=== PATIENT | male | born 1945 | race Caucasian/White ===

== ENCOUNTER 2022-04-03 14:10 | Emergency (ER) | payer MEDICARE, SELFPAY ==
[2022-04-03 14:18] VITALS: BP 150/77; PULSE 92; RESP 16; TEMP 36.6; O2SAT 100
--- NOTE | 2022-04-03 14:20 | ED.URI ---
HPI - URI/Sore Throat General Chief Complaint: Upper Respiratory Infection Stated Complaint: sinus infection Time Seen by Provider: 04/03/22 14:21 Source: patient and RN notes reviewed History of Present Illness HPI Narrative: patient is a 77-year-old male who presents to urgent care with complaints of sinus congestion, nasal pressure and fever. Patient states he has had congestion for approximately 1 week and the fever of 102 F started yesterday. Patient has been taking Kim. States that his daughter and spouse have sinus infections and were placed on antibiotics . No other complaints. No acute distress noted. Patient Aware of the plan of care. Some parts of this dictation were generated by voice recognition software and may contain typographical and/or grammatical inaccuracies. Related Data Home Medications Medication Instructions Recorded Confirmed hydrochlorothiazide 12.5 mg tablet 12.5 mg PO DAILY 04/03/22 04/03/22 liraglutide 0.6 mg/0.1 mL (18 mg/3 1.8 mg subcut DAILY 04/03/22 04/03/22 mL) subcutaneous pen injector (Osito 2-Rohit) metoprolol tartrate 50 mg tablet 50 mg PO BID 04/03/22 04/03/22 pantoprazole 40 mg tablet,delayed 40 mg PO HS 04/03/22 04/03/22 release pioglitazone 30 mg tablet 30 mg PO DAILY 04/03/22 04/03/22 simvastatin 40 mg tablet 40 mg PO DAILY 04/03/22 04/03/22 Allergies Allergy/AdvReac Type Severity Reaction Status Date / Time No Known Allergies Allergy Verified 04/03/22 14:28 Review of Systems Review of Systems: CONSTITUTIONAL: reports of fever EYES: Denies visual changes, redness, or discharge. ENT: reports nasal congestion, postnasal drainage, rhinorrhea CARDIOVASCULAR: Denies chest pain, palpitations, or edema. RESPIRATORY: Denies cough or dyspnea. GASTROINTESTINAL: Denies abdominal pain, nausea, vomiting, or diarrhea. GENITOURINARY: Denies dysuria or hematuria. SKIN: Denies rash or itching. MUSCULOSKELETAL: Denies back pain, joint pain . Reports body aches NEUROLOGIC: Denies headache, numbness, or weakness. All other systems reviewed are negative, except as documented in HPI. PMFSH Comments At the time of my signature, I reviewed and agree with the nursing past medical, surgical, social, and family history. There is no relevant family history pertinent to the patient complaint. Exam Narrative: GENERAL: This is a well-nourished, well-developed patient, in no apparent distress. HEAD: normocephalic, atraumatic. EYES: PERRL. Sclera clear/white. Vision is grossly intact. EARS: External ears normal, auditory canals clear and without drainage, TMs normal without perforation. Hearing grossly intact. NOSE: External nose normal with no obvious nasal discharge, moderate bilateral erythema nares with clear to yellow rhinorrhea THROAT: Mucous membranes moist, moderate postnasal drainage with moderate erythema in the posterior oropharynx NECK: Neck supple RESPIRATORY: Clear to auscultation. Breath sounds equal bilaterally. No wheezes, rales, or rhonchi. SKIN: warm, intact with no suspicious lesions or rash, good texture and turgor. NEURO: awake, alert, and oriented to person, place and time. There were no obvious focal neurologic abnormalities. EXTREMITIES: No clubbing, cyanosis, or edema. Course Course Level of Care: Express Care Visit Vital Signs Vital signs: Vital Signs Temperature 97.9 F 04/03/22 14:18 Pulse Rate 92 04/03/22 14:18 Respiratory Rate 16 04/03/22 14:18 Blood Pressure 150/77 H 04/03/22 14:18 Pulse Oximetry 100 04/03/22 14:18 Oxygen Delivery Room Air 04/03/22 14:18 Temperature 97.9 F 04/03/22 14:18 Pulse Rate 92 04/03/22 14:18 Respiratory Rate 16 04/03/22 14:18 Blood Pressure 150/77 H 04/03/22 14:18 Pulse Oximetry 100 04/03/22 14:18 Oxygen Delivery Room Air 04/03/22 14:18 reviewed- Patient is informed that they may have pre-hypertension or hypertension based on a blood pressure reading in the departmen
== END 2022-04-03 14:56 | disposition home or self-care (01) ==
PROVIDERS: Emergency Provider Nurse Practitioner Family
DX: J32.9 Chronic sinusitis, unspecified (principal); Z20.822 Contact with and (suspected) exposure to COVID-19; E78.00 Pure hypercholesterolemia, unspecified; I10 Essential (primary) hypertension; Z96.652 Presence of left artificial knee joint
CPT/HCPCS: 87426; 87804; 99213; C9803; G0463

== ENCOUNTER 2023-01-31 11:00 | Outpatient (RCR) | payer MEDICARE, SELFPAY | END 2023-02-21 07:29 | disposition home or self-care (01) | LOC: ANHCPREHAB 11:00 | DX: Z95.5 Presence of coronary angioplasty implant and graft (principal) | CPT/HCPCS: 93798 ==